=== PATIENT | male | born 1955 | race Native Hawaiian/Other Pacific Islander ===

== ENCOUNTER 2018-02-08 12:21 | Outpatient (CLI) | payer OTHER ==
[2018-02-08 12:53] LABS: PLATELET COUNT 224 K/uL (142-355)
== END 2018-02-08 19:30 | disposition home or self-care (01) ==
LOC: LAB 12:21
PROVIDERS: Nurse Practitioner Family
DX: Z00.00 Encounter for general adult medical examination without abnormal findings (principal); R53.82 Chronic fatigue, unspecified; R53.81 Other malaise; I50.9 Heart failure, unspecified; Z79.899 Other long term (current) drug therapy; Z51.81 Encounter for therapeutic drug level monitoring
CPT/HCPCS: 80053; 80061; 83036; 83880; 84436; 84443; 85027; 86141

== ENCOUNTER 2019-03-10 16:15 | Emergency (ER) | payer OTHER ==
[~2019-03-10] VITALS: Ht 180.3 cm; Wt 78.9 kg
[2019-03-10 17:07] VITALS: BP 100/75; TEMP 98
== END 2019-03-10 17:15 | disposition home or self-care (01) ==
LOC: ED 16:15
DX: T15.12XA Foreign body in conjunctival sac, left eye, initial encounter (principal)
CPT/HCPCS: 99283

== ENCOUNTER 2019-07-16 07:00 | Emergency (ER) | payer OTHER ==
[~2019-07-16] VITALS: Ht 180.3 cm; Wt 74.8 kg
[2019-07-16 07:00] VITALS: TEMP 97.3
[2019-07-16 07:43] LABS: PLATELET COUNT 132 K/uL (142-355)
[2019-07-16 07:57] LABS: POTASSIUM 5.1 mmol/L (3.6-5.2)
[2019-07-16 08:01] LABS: PARTIAL THROMBOPLASTIN TIME 24.5 SECONDS (24.5-33.6)
[2019-07-16 09:04] VITALS: BP 118/74
== END 2019-07-16 10:14 | disposition still patient (30) ==
LOC: ED 07:08
PROVIDERS: Hospitalist
DX: J44.1 Chronic obstructive pulmonary disease with (acute) exacerbation (principal); A41.9 Sepsis, unspecified organism; N19 Unspecified kidney failure; R00.0 Tachycardia, unspecified
CPT/HCPCS: 36600; 80053; 82550; 82805; 83605; 83880; 84484; 85027; 85610; 85730; 87040; 93005; 94664; 96365; 96368; 96375; 99284; 99285; J0456; J0696; J1940; J2060; J2930